=== PATIENT | female | born 1985 | race Hispanic/Latino ===

== ENCOUNTER 2024-05-17 19:43 | Emergency (ER) | payer OTHER ==
[~2024-05-17] VITALS: Ht 149.9 cm; Wt 68.0 kg
[2024-05-17 20:07] VITALS: PULSE 67; RESP 16; TEMP 98.2
[2024-05-17] MEDS ORDERED: KETOROLAC TROMETHAMINE 30 MG/ML VIAL IV STA (20:29)
[2024-05-17] MEDS ORDERED: IOPAMIDOL 370 MG/ML 100 ML INFUS..BTL INJ ONE (20:33)
[2024-05-17 20:48] VITALS: BP 179/87; PULSE 67; RESP 16; TEMP 98.2; O2SAT 98
== END 2024-05-17 20:48 | disposition left against medical advice (07) ==
LOC: FSED 19:51
DX: R10.2 Pelvic and perineal pain (principal)
CPT/HCPCS: Q9967